=== PATIENT | male | born 1970 | race Caucasian/White ===

== ENCOUNTER 2018-11-28 15:50 | Outpatient (CLI) | payer OTHER ==
--- NOTE | 2018-11-28 17:39 | SLEEP CARE CONSULTATION ---
Information from patient questionnaire entered by Geni Cisse. I have reviewed and concur with the information entered by Geni Cisse. This document represents the service I personally performed and the decisions made by me, Shahana Maxwell, RN, MSN, LUMBER STRAIGHTENER. History of Present Illness Reason for Visit: New patient, Previously diagnosed sleep apnea (He used CPAP until about 4 years ago as the device stopped functioning. He has since gained weight, increasing his snoring and his spouse unable to tolerate. ), Re- establish care Chief Complaint: reports: Insomnia, Unrefreshed sleep, Snoring, Excessive daytime sleepiness, Fatigue Duration of Symptoms: 18-20 years Usual bedtime: 10 pm Time it takes to fall asleep: less than a minute Snores at night: Yes Observed to quit breathing while asleep: Yes Sleeps alone due to snoring: Yes Number of times waking at night: 2-3 Reasons for waking at night: reports: Choking (occasionally), Snoring (nightly), Bathroom (occasionally), Other (spouse waking him due to snoring) Toss, Turn, or Twitch while sleeping: Yes Recalls having dreams: No Usually gets out of bed at: 5 am Feels refreshed in the morning: No Morning headache: No Sleepy or fatigued during the day: Yes Ever fallen asleep while driving: Yes (long distances) Takes day naps: No Dreams during day naps: No Prior sleep studies: Yes Year and Where: [facility] - 2006 - Parasomnia Symptoms Ever been unable to move upon waking from sleep: No Walks in sleep: Yes (once 6 months ago and once a few years ago when high stress. 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 Patient is and lives in [place]. Have you smoked in the past 12 months: No Alcohol use: Yes Alcohol amount and frequency: 1-2 a month Caffeine use: Yes Caffeine amount and frequency: rarely Family History Family history of sleep disordered breathing: Yes Family Hx Sleep Apnea: Sibling: Sleep apnea - Treated, Other: Snoring (daughter) Allergies and Home Medications Known drug allergies: Yes (? sulfa) Home medication list reviewed: Yes Allergy and home medication list: flecainide 150mg daily digoxin 0.125mg bid metoprolol 25 am and 50mg pm gael 180mg daily Review of Systems Weight gain over past 5 years: 25 Cardiovascular: reports: irregular heart rate or pulse Ear/Nose/Throat: reports: nasal congestion (with allergies), wisdom teeth removed (3 of them) Endocrine: reports: sluggishness Musculoskeletal: reports: joint pain (intermittent ) Immunologic: reports: sneezing, allergies to food or environment (seasonal) Physical Exam Blood Pressure: 112/70 Cuff size: long Heart Rate: 52 O2 Saturation: 96 Height: 6 ft 3 in Weight (kg): 252 lb Body Mass Index: 31.5 BMI Classification: Class 1 Neck circumference: 16.75 HEENT: No craniofacial malformation Nostrils: patent to airflow Turbinates: boggy Septum: midline Mouth and throat: narrow oropharynx Soft palate: long Hard palate: normal Uvula: long Uvula visualization: 0% Mallampati Class IV Tongue: normal in size Tonsils: 1+ Chin and jaw: normal size and position Neck: normal w/o lymphadenopathy or thyromegaly Heart: regular rate and rhythm Lungs: clear bilaterally Abdomen: soft Extremities: no edema or clubbing Impression and Plan 1. Obstructive Sleep Apnea-Hypopnea Syndrome, as previously diagnosed mild, currently not treated and has since gained 25 pounds. Current symptoms include loud and irregular snoring, observed cessation of breath while asleep, gasping or choking in sleep, unrefreshed sleep, cognitive impairment, and excessive daytime sleepiness. Narrow oropharynx and obesity are common predisposing factors for obstructive sleep apnea-hypopnea syndrome. I recommend proceeding to polysomnography to confirm the diagnosis and to assess severity. With his weight gain, his apnea may be more severe. If the patient has significant sleep disordered breathing, a manual CPAP titration study will also be performed to find the optimal treatment pressure. I informed the patient of what the sleep studies involve and after some discussion, obtained agreement to proceed. The pathophysiology of obstructive sleep apnea-hypopnea syndrome was discussed with the patient and health risks of cardiovascular and cerebrovascular disease if not treated. AASM brochure for obstructive sleep apnea-hypopnea syndrome declined. 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 Patient agreed to plan. 2. Sleep walking ( Somnambulism), observed by spouse and reported to patient only twice in past several years. The last episode was about 6 months ago. Both occurrences were when patient was under increased stress. Sleep walking is a parasomnia that is usually initiated during arousals from slow wave sleep and results in walking around in an altered state of consciousness and impaired judgment. Often episodes start with the patient sitting up n bed and looking about in a confused manner and walking or bolting out of bed and running and may involve acting as if escaping from a perceived or dreamed threat. Behavior can become belligerent or violent especially to the person trying to awaken them. The person is usually unaware of these episodes and can be hard to awaken and initially seem confused when first awakens. Because sleep walking usually occurs during slow- wave sleep, it often is seen in the first third or half the sleep period. The eyes are generally wide open with a glassy stare. During a sleep walking episode, routine behaviors can be completed during inappropriate times such a going to the bathroom in the wastebasket or moving furniture etc. On rare occasions, sleep driving or sleep eating can also occur. Also rare are homicide, pseudo suicide and abnormal sexual behaviors. Many factors have been identified for precipitating sleep walking events. The most potent factor is sleep deprivation. Other precipitating factors include hyperthyroidism, migraines, head injury, encephalitis, stroke, and other conditions. Sleep related respiratory events and obstructive sleep apnea/hypopnea syndrome can also precipitate disordered arousals for sleep walking. In addition, travel, unfamiliar sleeping environment, febrile states in children, physical or emotional stress in adults and the premenstrual period can also precipitate sleep walking episodes. Use of psychotropic medications, alcohol and internal stimuli such as distended bladder or external stimuli such as noise or light can also be risk factor. In adult sleepwalking, a large number of people may have had a past or current history of non-psychotic depressive and anxiety disorders. Although it is does not appear that the psychiatric disorder and sleep walking are tightly linked and psychiatric treatment does not generally does not control the sleep walking. There is also a familial pattern noted. I discussed safety precautions with the patient and about the rare occurrences of sleep driving and cooking, eating. Differential diagnoses include Obstructive sleep apnea, REM behavior disorder; sleep related epilepsy, and malingering. It appears these two episodes of sleep walking occurred when patient under increased stress and fatigue. No treatment seems indicated at this time except safety precautions of keeping doors locked and keys out of reach. * Schedule polysomnography +- manual CPAP titration study a * Avoid long distance driving or driving when feeling sleepy. * Avoid alcohol, sedative and muscle relaxant around bedtime. * Attempt to lose weight. * Review instructions provided by trained office staff on how to prepare for the sleep study. * Return for follow-up after sleep study completed. I spent 100% of this 35 minute visit face to face with the patient with greater than 50% of this was spent time counseling the patient and coordination of care.
[2018-11-28 17:40] VITALS: BP 112/70
== END 2018-11-28 15:51 | disposition home or self-care (01) ==
LOC: SC 15:50
PROVIDERS: ATTEND Nurse Practitioner Family
DX: G47.33 Obstructive sleep apnea (adult) (pediatric) (principal)
CPT/HCPCS: 99203; 99212

== ENCOUNTER 2018-12-06 20:53 | Outpatient (CLI) | payer OTHER | END 2018-12-06 20:54 | disposition home or self-care (01) | LOC: SC 20:53 | PROVIDERS: ATTEND Internal Medicine Pulmonary Disease | DX: G47.33 Obstructive sleep apnea (adult) (pediatric) (principal); E66.9 Obesity, unspecified; Z68.31 Body mass index [BMI] 31.0-31.9, adult | CPT/HCPCS: 95810 ==

== ENCOUNTER 2019-01-07 20:34 | Outpatient (CLI) | payer OTHER | END 2019-01-07 20:35 | disposition home or self-care (01) | LOC: SC 20:34 | PROVIDERS: ATTEND Internal Medicine Pulmonary Disease | DX: G47.33 Obstructive sleep apnea (adult) (pediatric) (principal); I49.9 Cardiac arrhythmia, unspecified; Z95.810 Presence of automatic (implantable) cardiac defibrillator | CPT/HCPCS: 95811 ==

== ENCOUNTER 2019-01-10 16:37 | Outpatient (CLI) | payer OTHER ==
[2019-01-10 17:35] VITALS: BP 104/60
--- NOTE | 2019-01-10 17:35 | SLEEP CARE CONSULTATION ---
Information from patient questionnaire entered by Geni Cisse. I have reviewed and concur with the information entered by Geni Cisse. This document represents the service I personally performed and the decisions made by me, Shahana Maxwell, RN, MSN, EMPLOYEE RELATION MANAGER. History of Present Illness Initial [place] Sleepiness Scale score: 17 Current [place] Sleepiness Scale score: 20 Additional HPI information: SAUL WESTFALL returns for follow up of the recently performed polysomnography and manual titration study. I explained the pathophysiology behind obstructive sleep apnea. We then spent quite a bit of time discussing different treatment options. For mild obstru ctive sleep apnea, surgery and oral appliance are alternatives to nasal CPAP therapy but in moderate or severe cases, nasal CPAP is the most effective and reliable treatment. I reviewed the impact of weight changes on sleep apnea and strongly recommended losing weight. After some discussion, the patient opted to go with the nasal CPAP therapy. Nasal autoCPAP set at 5cmH20 will be ordered with rationale explained. I explained how CPAP machine works with sample devices [employer] Dreamstation and [employer] [id number] and what to expect when using the machine. Using CPAP every night in order to get used to it was emphasized. Patient advised to put CPAP mask on before getting into bed so as not to fall asleep without CPAP. To assist acclimation to CPAP use, it could also be used for a short time during day while reading or watching TV. The patient was instructed to call the CPAP supplier to discuss any mechanical problem that may occur. If the mask given is uncomfortable or is difficult to keep on through the night even with adjustment, contact the CPAP supplier as many will replace with another mask style if notified before 30 days. If snoring or perceives is not getting enough air or too much air from the machine, notify this office. AASM patient education PAP tips reviewed and given to patient. Patient prefers Dreamstation. Patient counseled not drink alcohol less than 4 hours before bedtime as it can increase snoring and apnea. Patient does not drink alcohol. Patient was cautioned about risks of drowsy driving until sleepiness symptoms resolve. Patient denies drowsy driving. Sleep Study - Polysomnography Polysomnography findings: Polysomnography The quality of the study is good. The patient had normal sleep efficiency. The sleep architecture was normal as well. Respiratory monitoring showed mild obstructive sleep apnea- hypopnea (AHI = 9.5) associated with frequent arousals, oxyhemoglobin desaturation and mild hypoxia (helga oxygen saturation of 82%). Baseline oxygen saturation was normal. The respiratory events occurred mainly during REM sleep (supine AHI = 18.8; nonsupine = 4.33). Snore was light to loud in intensity. There was no significant periodic leg movement of sleep. Cardiac rhythm was paced at 50 beats per minute. No abnormal behavior (parasomnia) observed during the night. Manual titration Study The quality of the study is good. CPAP was initiated at 4 cmH2O and titrated up to CPAP at 5 cmH2O. CPAP at 5 cmH2O appeared to be optimal (AHI of 0 per hour on the pressure). There was supine REM sleep on the pressure. Oxygen saturation was normal throughout the night.. Lower CPAP setting at 4 cmH2O appeared adequate as well. The patient tolerated positive airway pressure therapy fairly well. The patients sleep efficiency was reduced due to a prolonged awakening in the middle of the night. The sleep architecture was normal. There was no significant periodic leg movement of sleep. Cardiac rhythm was paced at 50 beats per minute. There was a period of wide-complex rhythm of about 85 beats per minute when the patient got up to use the bathroom.. No abnormal behavior (parasomnia) observed during the night. Allergies and Home Medications Known drug allergies: Yes Home medication list reviewed: Yes (no change) Review of Systems Review of systems same as previous: Yes Physical Exam Blood Pressure: 104/60 Cuff size: long Heart Rate: 66 O2 Saturation: 98 Weight: 247 lb 6.4 oz Weight change since last visit: lost 5 pounds Impression and Plan 1. Obstructive Sleep Apnea-Hypopnea Syndrome, mild, with lowest oxygen saturation of 82% that is adequately controlled with 5cmH20. Obviously this is the cause of the patients symptoms of unrefreshed sleep, and excessive daytime sleepiness. Positive pressure therapy could benefit his arrhythmia. As mentioned above, the patient will be started on nasal autoCPAP therapy with pressure set at 5 cmH2O. Compliance guidelines also reviewed. A copy of compliance guidelines will be given for reference at check out. Because the apnea is more severe supine, I instructed to avoid sleeping supine using pillow positioning until able to start CPAP use. 2. Arrhythmia, wide complex rhythm of about 85 beats per minute noted when patient got up to use the bathroom on manual tirtaiton study. Patient has implanted AICD. A copy of tracing attached to this report for PCP and controls designer. Patient advised to follow up with his controls designer for further evaluation. * Nasal auto CPAP therapy, pressure at 5 cm H2O. * Continue to lose weight. * Avoid alcohol consumption near bedtime. * Avoid supine sleep until using CPAP. * The patient is again cautioned about driving until sleepiness completely resolves. * Return one month after CPAP obtained. I will assess response to therapy and compliance at that time. I spent 100% of this [20][30] minute visit face to face with the patient with greater than 50% of this was spent time counseling the patient and coordination of care.
== END 2019-01-10 16:38 | disposition home or self-care (01) ==
LOC: SC 16:37
PROVIDERS: ATTEND Nurse Practitioner Family
DX: G47.33 Obstructive sleep apnea (adult) (pediatric) (principal); I49.9 Cardiac arrhythmia, unspecified
CPT/HCPCS: 99212; 99215

== ENCOUNTER 2019-01-11 06:17 | Day surgery (SDC) | payer OTHER ==
[2019-01-11] MEDS ORDERED: LACTATED RINGERS 1,000 ML IV ONE (07:00)
--- NOTE | 2019-01-11 07:43 | SURGERY HX AND PHYSICAL(T) ---
Surgical History & Physical - PMH/PSH/Social Hx Does the pt have a hx of MRSA?: No Eyes, Ears, Nose, Throat: Chronic sinusitis Cardiovascular: NV, Atrial fibrillation Respiratory: None Skin: None Endocrine/Autoimmune: None Gastrointestinal: None Urinary: None Musculoskeletal: None Psychiatric: Post traumatic stress disorder - Home Meds and Allergies Home Medications: Aspirin EC [Ecotrin] 325 mg PO 01/10/19 Digoxin 125 mcg PO DAILY 01/10/19 Fexofenadine HCl [Grace Allergy] 180 mg PO DAILY 01/10/19 Flecainide Acetate 150 mg PO BID 01/10/19 Metoprolol Succinate 25 mg PO DAILY 01/10/19 Metoprolol Succinate 50 mg PO QPM 01/10/19 Allergies/Adverse Reactions: Allergies Allergy/AdvReac Type Severity Reaction Status Date / Time sulfamethoxazole AdvReac Edema Verified 01/10/19 13:04 [From Bactrim] trimethoprim [From Bactrim] AdvReac Edema Verified 01/10/19 13:04 - Vital Signs Weight (kg): 110.02 kg Height: 1.91 m - Patient Review Patient Review: Problems were reviewed with the patient during this visit. Medications were reviewed with the patient during this visit. Allergies were reviewed this patient during this visit. Pertinent Tests Reviewed: All pertitent test for this patient were reviewed. - Assessment & Plan Assessment and Plan: This very pleasant 48-year-old male was initially sent to my office back on October 17, 2018 for the exact same reason. He is here for screening colonoscopy. He describes his bowel movements as regular and normal. He denies nausea, vomiting, constipation, diarrhea, melena, hematochezia, hematemesis, abdominal pain, unexplained weight loss, or change in the color, character or caliber of his stool. He was initially scheduled for his colonoscopy on November 02 but for reasons that I do not know if this was postponed until today. His , Madison, is at the bedside and she will be his tractor trailer driver after the procedure. Current Allergies:He may be becoming allergic to sulfa. Current Meds: METOPROLOL TARTRATE 50 MG ORAL TABLET (METOPROLOL TARTRATE) Take one tablet by mouth twice daily; Route: ORAL ASPIRIN 325 MG ORAL TABLET (ASPIRIN) Take one tablet by mouth everyday; Route: ORAL DIGOXIN 125 MCG ORAL TABLET (DIGOXIN) Take one tablet by mouth daily; Route: ORAL Past Medical History: No siginificant past medical history noted Past Surgical History: 2003 ICD implant and battery replacement Family History Summary: No significant family history. Social History Summary: Patient has never smoked. Patient has never used smokeless tobacco. Passive Smoke: N Alcohol Use: Y Drug Use: N HIV/High Risk: N Regular Exercise: Y Review of Systems CONSTITUTIONAL: No weight loss, fever, chills, weakness, or fatigue. HEENT: Eyes: No visual loss, blurred vision, double vision or yellow sclerae. Ears, Nose, Throat: No hearing loss, sneezing, congestion, runny nose, or sore throat. SKIN: No rash or itching. RESPIRATORY: No shortness of breath, cough or sputum. GASTROINTESTINAL: No anorexia, nausea, vomiting or diarrhea. No abdominal pain or blood. GENITOURINARY: No dysuria. NEUROLOGICAL: No headache, dizziness, syncope, paralysis, ataxia, numbness or tingling in the extremities. No change in bowel or bladder control. MUSCULOSKELETAL: No muscle, back pain, joint pain or stiffness. HEMATOLOGIC: No anemia, bleeding or bruising. LYMPHATICS: No enlarged nodes. No history of splenectomy. PSYCHIATRIC: No history of depression or anxiety. ENDOCRINOLOGIC: No reports of sweating, cold or heat intolerance. No polyuria or polydipsia. ALLERGIES: No history of asthma, hives, eczema or rhinitis. Physical Exam General: 48 year old stocky male, appears stated age, well developed, well nourished. 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 Examined on a gurney in bed 1 at [facility]'s home care assistant unit. HEENT: Normocephalic, atraumatic, extraocular movement intact, mucous membranes pink and moist, sclera anicteric and not injected Neck: Supple without pain on palpation, mass or bruit Cardiac: Regular rate and rhythm without rub, gallop, or murmur. Chest: Clear to auscultation bilaterally Abdomen: Soft, nontender, normoactive bowel sounds, no hepatomegaly, no splenomegaly Genitourinary: Deferred Rectal: Deferred until colonoscopy Extremities: No gross neurovascular problem, no clubbing, cyanosis or edema Gait: Not reexamined today. Psychiatric: Alert and oriented to person place and time, asks and answers questions appropriately, mood and affect appropriate Impression & Recommendations: Screening colonoscopy with possible biopsies and/or polypectomies. Indications, procedure, alternatives (such as barium enema, Cologuard and even no procedure at all) and risks including but not limited to perforation requiring operative repair, bleeding with its risks, and were fully explained to him. In the office, I david diagrams explaining the colonic anatomy and the proposed procedure and handed it to him. In the office, conscious sedation was discussed at length with him as were its risks including but not limited to loss of airway, aspiration, respiratory depression, and not enough relief of pain and anxiety and he indicated that he wished to have conscious sedation for his procedure. In the office, I explained that MAC anesthesia is associated with a higher incidence of colon perforation. Review of his history does not reveal any significant systemic disease that would contraindicate use of conscious sedation or MAC anesthesia. All questions were fully answered. Verbal and wri tten consent was obtained. The patient in preparation for his colonoscopy has been n.p.o. and his colon has been mechanically prepped. 20 minutes of [id number] time spent with the patient the majority of which was spent in discussion and in the generation of this document [employer] disclaimer: This document was created in part using voice recognition technology. Because of the inherent limitations of the system ([employer] Dictate user manual states that the licensee understands that speech recognition is a statistical process and that recognition errors are inherent in the process), occasional same sounding word substitutions and grammatical errors do occur and persist despite proofreading. Please read this document for context.
[2019-01-11] MEDS ORDERED: MIDAZOLAM 2 MG/2 ML VIAL IVP ONE (07:48)
[2019-01-11] MEDS ORDERED: fentaNYL 250 MCG/5 ML VIAL IVP ONE (07:48)
[2019-01-11 09:16] VITALS: BP 127/76
== END 2019-01-11 06:18 | disposition home or self-care (01) ==
LOC: SDS 06:17
PROVIDERS: ATTEND Surgery
PROC: 0DBN8ZZ Excision of Sigmoid Colon, Via Natural or Artificial Opening Endoscopic (ICD-10-PCS; 2019-01-11)
PROC: 0DBH8ZZ Excision of Cecum, Via Natural or Artificial Opening Endoscopic (ICD-10-PCS; principal; 2019-01-11 07:30)
DX: Z12.11 Encounter for screening for malignant neoplasm of colon (principal); D12.0 Benign neoplasm of cecum; D12.5 Benign neoplasm of sigmoid colon; K64.8 Other hemorrhoids; Z95.810 Presence of automatic (implantable) cardiac defibrillator; I48.91 Unspecified atrial fibrillation; I25.2 Old myocardial infarction
CPT/HCPCS: 45380; J3010; J7120

== ENCOUNTER 2019-07-16 16:16 | Outpatient (CLI) | payer OTHER ==
--- NOTE | 2019-07-16 15:21 | SLEEP CARE CONSULTATION ---
Information from patient questionnaire entered by Jessenia Alatorre. I have reviewed and concur with the information entered by Jessenia Alatorre. This document represents the service I personally performed and the decisions made by me, Shahana Maxwell, RN, MSN, DIRECTOR OF VOLUNTEER SERVICES. History of Present Illness Service Date and Time: 07/16/2019 1500 Previous diagnosis: Mild, Obstructive Sleep Apnea-Hypopnea Syndrome AHI: 9.5 Reason for follow up: three month (WITH PRESSURE CHANGE) Equipment type: CPAP Equipment obtained from: [employer] ("getting supplies until [employer] " pandemic) Mask style: Nasal pillows Backup mask available: No (keep current mask when replaced as spare ) Last cushion change: 3 months CPAP Compliance Data - Data Reviewed with Patient Average duration of nightly device use: 7H 2 M Compliance rate %: 98.9 Current pressure setting (cmH2O): 6 Humidity settin Heated hose settin Average residual AHI: 3 Average large leak: 0S Subjective Patient concerns: denies: aerophagia, mask discomfort, air blowing in eyes (vent can blow into spouses face), mask leak noise, condensation in mask/hose, nasal congestion, dry mouth, nose, throat, epistaxis, other Observed to snore while using device: No Current pressure setting perceived as: comfortable On therapy, patient: reports: sleeping better, awakening more refreshed, being more awake and alert during the day, more rested overall, other. denies: drowsiness while driving Initial [place] Sleepiness Scale score: 17 Allergies and Home Medications Home medication list reviewed: No (no changes ) Review of Systems Review of systems same as previous: Yes Physical Exam Height: 6 ft 3 in Weight: 255 lb (home weight) Body Mass Index: 31.8 BMI Classification: Obese Impression and Plan 1. Obstructive Sleep Apnea-Hypopnea Syndrome, mild, with good treatment compliance and good apnea control. On CPAP therapy, the patient has better sleep quality and is more rested overall. Patient is very pleased with benefit of treatment and plans on continuing. He has not obtained supplies since pandemic so advised to contact [employer] as his mask is now 3 months old. He has increased his sleep duration with CPAP by 2 hours as advised so now getting sufficient sleep. I again reviewed risks of insufficient sleep such as increase in cardiac health risks and he already has a cardiac history. He as gained some weight and is aware how significant weight change can increase or decrease apnea risk and PAP pressure requirements. To reduce mask venting into spouses face, a pillow barrier can be placed. Patient's apnea severity and rationale for treatment to reduce apnea, improve sleep quality and reduce cardiovascular and cerebrovascular events was reviewed. * Continue CPAP pressure at 6 cmH2O * Contact [employer] to update supplies * Notify me if snoring with mask or feeling that the pressure is too much or too little * Attempt to lose weight * Call this office if any problems using CPAP * Return for follow up in 1 year , or sooner if concerns arise Visit Type: Telehealth Video (to reduce risk of Covid 19 exposure) Video Type: [employer] Patient Location: Home Location of Provider: Home Patient agrees and consents to this telehealth visit type: Yes Patient agrees to have their insurance billed: Yes Time Spent with Patient (minutes): 10 Provider Statement: I spent 100% of the Telehealth Video Call with the patient with greater than 50% spent counseling the patient and coordination of care.
== END 2019-07-16 16:17 | disposition home or self-care (01) ==
LOC: SC 16:16
PROVIDERS: ATTEND Nurse Practitioner Family
DX: G47.33 Obstructive sleep apnea (adult) (pediatric) (principal); E66.9 Obesity, unspecified; Z68.31 Body mass index [BMI] 31.0-31.9, adult